=== PATIENT | female | born 1990 | race Caucasian/White ===

== ENCOUNTER 2020-10-04 17:42 | Emergency (ER) | payer OTHER ==
[~2020-10-04] VITALS: Ht 160 cm; Wt 93.8 kg
--- NOTE | 2020-10-04 18:28 | PHYS DOC ---
General Adult EDM: Chief Complaint: ALLERGIC REACTION HPI: HPI: ".. I allergic fur.. and almost everything green.. I ve seen an allergy doctor.... I did take some Benadryl for came into little bit better..." Patient is a 29 year old female who presents with above hx and complaints of allergy s and extensive hives. Patient denies any new exposures. No changes and personal hygiene products, soaps, etc. No recent travel. No significant ill contacts. Patient states when hives get this bad she had to have steroids. The pt. follows with Dr. Stephanie Renteria. Review of Systems: Review of Systems: Constitutional: Denies fever or chills Eyes: Denies change in visual acuity HENT: Denies nasal congestion or sore throat Respiratory: Denies cough or shortness of breath Cardiovascular: Denies chest pain or edema GI: Denies abdominal pain, nausea, vomiting, bloody stools or diarrhea : Denies dysuria Musculoskeletal: Denies back pain or joint pain Integument: Complains of extensive hives Neurologic: Denies headache, focal weakness or sensory changes Endocrine: Denies polyuria or polydipsia Lymphatic: Denies swollen glands Psychiatric: Denies depression or anxiety Family History: Family History: Noncontributory to presentation Current Medications: Current Meds: See nursing for home meds Allergies: Allergies: Multiple allergies . Seasonal, plants, fur. No drug allergies. Physical Exam: PE: Constitutional: Moderate acute distress, non-toxic appearance. [] HENT: Normocephalic, atraumatic, bilateral external ears normal, oropharynx moist, no oral exudates, nose normal. [] Eyes: PERRLA, EOMI, conjunctiva normal, no discharge. [] Neck: Normal range of motion, no tenderness, supple, no stridor. [] Cardiovascular:Heart rate regular rhythm, no murmur [] Lungs & Thorax: Bilateral breath sounds equal apex with few scattered wheezes on auscultation [] Abdomen: Bowel sounds normal, soft, no tenderness, no masses, no pulsatile masses. [] Skin: Warm, dry, extensive hives Back: No tenderness, no CVA tenderness. [] Extremities: No tenderness, no cyanosis, no clubbing, ROM intact, no edema. [] Neurologic: Alert and oriented X 3, normal motor function, normal sensory function, no focal deficits noted. [] Psychologic: Affect anxious, judgement normal, mood normal. [] EKG: EKG: [] Radiology/Procedures: Radiology/Procedures: [] Heart Score: C/O Chest Pain: N/A Risk Factors: Risk Factors: DM, Current or recent (<one month) smoker, HTN, HLP, family history of CAD, obesity. Risk Scores: Score 0 - 3: 2.5% MACE over next 6 weeks - Discharge Home Score 4 - 6: 20.3% MACE over next 6 weeks - Admit for Clinical Observation Score 7 - 10: 72.7% MACE over next 6 weeks - Early Invasive Strategies Course & Med Decision Making: Course & Med Decision Making Pertinent Labs and Imaging studies reviewed. (See chart for details) Pt. had IM injection Depo medrol 40, Pepcid and Ventolin tx. in ED with some improvement of symptoms. Patient take Benadryl 50 mg at 4 times a day for itching. Patient take Pepcid 20 mg twice a day. Patient use MDI 2 puffs 4 times a day. Patient follow-up primary care. Patient return if any concerns. Impression: 1. Hives [] Ari Disclaimer: Dragon Disclaimer: This electronic medical record was generated, in whole or in part, using a voice recognition dictation system. Departure Departure: Referrals: STEPHANIE RENTERIA MD (PCP) Scripts Famotidine (PEPCID) 20 Mg Tablet 20 MG PO BID for hive and GERD for 30 Days, #60 TAB Prov: CM VALDERRAMA MD 10/04/20 Ari Disclaimer This chart was dictated in whole or in part using Voice Recognition software in a busy, high-work load, and often noisy Emergency Department environment. It may contain unintended and wholly unrecognized errors or omissions. CM VALDERRAMA MD October 04, 2020 18:28
[2020-10-04] MEDS ORDERED: FAMO-63 PO (19:06)
[2020-10-04] MEDS ORDERED: ALBUTEROL SULFATE 8GM INHALER. INH ONE (19:15)
[2020-10-04] MEDS ORDERED: FAMOTIDINE 20 MG TABLET PO ONE (19:15)
[2020-10-04] MEDS ORDERED: methylPREDNISolone ACETATE 40 MG/ML VIAL. IM ONE (19:15)
[2020-10-04 20:00] VITALS: BP 148/76
[2020-10-04] MEDS ORDERED: FAMOTIDINE 20 MG TABLET ONE (20:10)
[2020-10-04] MEDS ORDERED: ALBUTEROL SULFATE 8GM INHALER. ONE (20:10)
[2020-10-04] MEDS ORDERED: methylPREDNISolone ACETATE 40 MG/ML VIAL. ONE (20:10)
== END 2020-10-04 20:18 | disposition home or self-care (01) ==
LOC: ER 17:42
DX: L50.9 Urticaria, unspecified (principal)
CPT/HCPCS: 96372; 99283; J1030